=== PATIENT | female | born 1965 | race African-American/Black ===

== ENCOUNTER 2019-03-02 01:32 | Emergency (ER) | payer OTHER ==
[2019-03-02 02:41] LABS: #Basophils 0.1 thou/uL (0.0-0.2); #Eosinphils 0.1 thou/uL (0.0-0.7); #Monocytes 0.7 thou/uL (0.11-0.59); #Neutrophils 5.7 thou/uL (1.40-6.50); %Basophils 0.6 % (0.0-1.0); %Lymphocytes 31.3 % (21.0-51.0); %Monocytes 7.6 % (0.0-10.0); %Neutrophils 59.5 % (42.0-75.0); Hemoglobin 12.8 g/dL (12.0-16.0); Mean Corpuscular HGB CONC 31.6 g/dL (32.0-36.0); Mean Corpuscular Hemoglobin 26.6 pg (27.0-31.0); Mean Corpuscular Volume 84.1 fL (78.0-98.0); Mean Platelet Volume 10.6 fL (7.4-10.4); Platelet Count 214 thou/uL (130-400); Red Blood Cell (RBC) Count 4.82 mill/uL (4.20-5.40); White Blood Cell (WBC) Count 9.6 thou/uL (4.8-10.8)
[2019-03-02 03:02] LABS: ALT (SGPT) 15 U/L (8-55); AST (SGOT) 9 U/L (5-34); Albumin 4.1 g/dL (3.5-5.0); Alkaline Phosphatase 88 U/L (40-150); Anion Gap 14 mmol/L (10-20); BUN (Urea Nitrogen) 21 mg/dL (9.8-20.1); Bilirubin, Total 0.4 mg/dL (0.2-1.2); Calc. Creatinine Clearance 0 mL/min (70-130); Calcium 9.6 mg/dL (7.8-10.44); Carbon Dioxide 26 mmol/L (22-29); Chloride 98 mmol/L (98-107); Estimated GFR-MDRD 59; Globulin 4.1 g/dL (2.4-3.5); Glucose 425 mg/dL (70-105); Potassium 3.8 mmol/L (3.5-5.1); Protein, Total 8.2 g/dL (6.0-8.3); Sodium 134 mmol/L (136-145)
[2019-03-02] MEDS ORDERED: Methocarbamol 500 MG TAB PO SCH (03:15)
[2019-03-02] MEDS ORDERED: traMADol HCl 50 MG TAB ONE (03:23)
[2019-03-02] MEDS ORDERED: cloNIDine 0.1 MG TAB ONE (05:08)
[2019-03-02] MEDS ORDERED: Morphine 4 MG/ML VIAL ONE (06:02)
[2019-03-02] MEDS ORDERED: Ondansetron PF 4 MG/2 ML Vial ONE (06:03)
[2019-03-02] MEDS ORDERED: hydrALAZINE 20 MG/ML VIAL ONE (06:03)
--- NOTE | 2019-03-05 12:14 | EKG ---
Test Reason : Blood Pressure : / mmHG Vent. Rate : 100 BPM Atrial Rate : 100 BPM P-R Int : 184 ms QRS Dur : 080 ms QT Int : 390 ms P-R-T Axes : 049 -08 074 degrees QTc Int : 503 ms Normal sinus rhythm Possible Left atrial enlargement Left ventricular hypertrophy Prolonged QT Abnormal ECG Confirmed by JEAN HERNANDEZ ([id number]), book editor JAMISON UMANZOR ([id number] on 03/05/2019 12:14:07 PM Referred By: Confirmed By:JEAN HERNANDEZ
== END 2019-03-02 06:57 | disposition home or self-care (01) ==
LOC: ERS 01:32
DX: G89.29 Other chronic pain (principal); M25.561 Pain in right knee; M25.562 Pain in left knee; I10 Essential (primary) hypertension; M54.9 Dorsalgia, unspecified; G47.30 Sleep apnea, unspecified; E11.9 Type 2 diabetes mellitus without complications; F17.210 Nicotine dependence, cigarettes, uncomplicated; Z79.899 Other long term (current) drug therapy; Z79.4 Long term (current) use of insulin
CPT/HCPCS: 80053; 84484; 85025; 93005; 96374; 96375; J0360; J2270; J2405

== ENCOUNTER 2019-10-03 10:12 | Emergency (ER) | payer OTHER ==
--- NOTE | 2019-10-03 10:39 | RAD ---
EXAM: Single view of the chest HISTORY: Cough and congestion since Thursday COMPARISON: 01/30/2016 FINDINGS: Single view of the chest shows a normal sized cardiomediastinal silhouette. There is no ana luisa dence of consolidation, mass, or pleural effusion. The bones are unremarkable. IMPRESSION: No evidence of acute cardiopulmonary disease
[2019-10-03] MEDS ORDERED: Acetaminophen 500 MG TAB ONE (10:45)
== END 2019-10-03 12:01 | disposition home or self-care (01) ==
LOC: ERS 10:12
DX: J10.1 Influenza due to other identified influenza virus with other respiratory manifestations (principal); I10 Essential (primary) hypertension; G47.30 Sleep apnea, unspecified; E11.9 Type 2 diabetes mellitus without complications; F17.210 Nicotine dependence, cigarettes, uncomplicated; G43.909 Migraine, unspecified, not intractable, without status migrainosus; Z79.4 Long term (current) use of insulin; Z79.899 Other long term (current) drug therapy
CPT/HCPCS: 71045; 87804

== ENCOUNTER 2025-05-26 10:15 | Outpatient (CLI) | payer MEDICAID, OTHER | END 2025-05-26 10:16 | disposition home or self-care (01) | LOC: BICMAMMO 10:15 | PROVIDERS: ATTEND Family Medicine | DX: Z78.0 Asymptomatic menopausal state (principal); M85.851 Other specified disorders of bone density and structure, right thigh; M85.852 Other specified disorders of bone density and structure, left thigh | CPT/HCPCS: 77080 ==